=== PATIENT | male | born 1975 | race Caucasian/White ===

== ENCOUNTER 2019-01-03 22:04 | Emergency (ER) | payer SELFPAY ==
[~2019-01-03] VITALS: Ht 169.5 cm; Wt 93.2 kg
[2019-01-03] MEDS ORDERED: no home meds (22:46)
[2019-01-03] MEDS ORDERED: NS 1,000 ML IV ONE (23:45)
[2019-01-03] MEDS ORDERED: ISOVUE-370 76% 100ML VIAL (Q9967) As Ordered ONE (23:59)
--- NOTE | 2019-01-04 00:20 | REPVR ---
EXAM: CT Head Without Contrast EXAM DATE/TIME: 01/03/2019 11:56 PM CLINICAL HISTORY: 43 years old, male; Injury or trauma; Initial encounter; Blunt trauma (contusions or hematomas); Additional info: Tr TECHNIQUE: Imaging protocol: Computed tomography images of the head without contrast. Radiation optimization: All CT scans at this facility use at least one of these dose optimization techniques: automated exposure control; mA and/or kV adjustment per patient size (includes targeted exams where dose is matched to clinical indication); or iterative reconstruction. COMPARISON: No relevant prior studies available. FINDINGS: Brain: No intracranial hemorrhage or extra-axial fluid collection. No evidence of mass effect or midline shift. Luo-white matter differentiation is intact. Ventricles: No ventriculomegaly. Bones/joints: No acute osseus lesion or fracture. Sinuses: Unremarkable as visualized. Mastoid air cells: Unremarkable. Soft tissues: Unremarkable. IMPRESSION: No acute intracranial pathology. Electronically signed by: Jovani Earl On 01/04/2019 00:19:20 AM
--- NOTE | 2019-01-04 00:23 | REPVR ---
EXAM: CT Cervical Spine Without Contrast EXAM DATE/TIME: 01/03/2019 11:56 PM CLINICAL HISTORY: 43 years old, male; Injury or trauma; Initial encounter; Blunt trauma; Additional info: Tr TECHNIQUE: Imaging protocol: Computed tomography images of the cervical spine without contrast. Radiation optimization: All CT scans at this facility use at least one of these dose optimization techniques: automated exposure control; mA and/or kV adjustment per patient size (includes targeted exams where dose is matched to clinical indication); or iterative reconstruction. COMPARISON: No relevant prior studies available. FINDINGS: Vertebrae: Acute nondisplaced fracture involving the right lateral mass and transverse process of C2, with involvement of the right transverse foramina. Minimal extension of the fracture to the right lateral aspect of the dens. The dens is otherwise intact. Vertebral body heights are maintained. No locked or perched facets. Multilevel facet arthropathy. Atlanto-axial intervals are normal. Discs/Spinal canal/Neural foramina: Multilevel degenerative changes with intervertebral disc height loss and osteophyte formation. No significant spinal stenosis. Soft tissues: Unremarkable. Lungs: Lung apices are clear. IMPRESSION: Acute nondisplaced fracture involving the right lateral mass and transverse process of C2, with involvement of the right transverse foramina. Minimal extension of the fracture to the right lateral aspect of the dens. Recommend correlation with CTA neck to exclude vertebral artery injury. THIS REPORT CONTAINS FINDINGS THAT MAY BE CRITICAL TO PATIENT CARE. The findings were verbally communicated via telephone conference with PATRICIA YANCEY at 12:22 AM EDT on 01/04/2019. The findings were acknowledged and understood. Electronically signed by: Jovani Earl On 01/04/2019 00:23:18 AM
--- NOTE | 2019-01-04 00:25 | REPVR ---
EXAM: CT Abdomen and Pelvis With Contrast EXAM DATE/TIME: 01/03/2019 11:56 PM CLINICAL HISTORY: 43 years old, male; Injury or trauma; Initial encounter; Blunt; Generalized; Additional info: Tr TECHNIQUE: Imaging protocol: Computed tomography images of the abdomen and pelvis with intravenous contrast. Radiation optimization: All CT scans at this facility use at least one of these dose optimization techniques: automated exposure control; mA and/or kV adjustment per patient size (includes targeted exams where dose is matched to clinical indication); or iterative reconstruction. Contrast material: ISOVUE 370; Contrast volume: 100 ml; Contrast route: IV; COMPARISON: No relevant prior studies available. FINDINGS: Lungs: Mild bibasilar dependent atelectasis of the lung bases. Liver: Unremarkable. Gallbladder and bile ducts: Unremarkable. No ductal dilation. Pancreas: Unremarkable. No ductal dilation. Spleen: Unremarkable. Adrenals: Unremarkable. Kidneys and ureters: 1.7 cm fluid density cyst in the right kidney. Left kidney is unremarkable. No hydronephrosis or stones. Stomach and bowel: Stomach is unremarkable. No small bowel obstruction. Large bowel is unremarkable. Appendix: No evidence of appendicitis. Intraperitoneal space: No pneumoperitoneum. No significant fluid collection. Vasculature: Unremarkable. Lymph nodes: No enlarged lymph nodes. Bladder: Unremarkable. Reproductive: Unremarkable as visualized. Bones/joints: Multilevel mild degenerative changes of the visualized spine. No acute osseous lesion or fracture. Soft tissues: Unremarkable. IMPRESSION: 1. No acute intra-abdominal pathology. 2. Other chronic findings, as above. Electronically signed by: Jovani Earl On 01/04/2019 00:25:21 AM
--- NOTE | 2019-01-04 00:27 | REPVR ---
EXAM: CT Chest With Contrast EXAM DATE/TIME: 01/03/2019 11:56 PM CLINICAL HISTORY: 43 years old, male; Injury or trauma; Initial encounter; Additional info: Tr TECHNIQUE: Imaging protocol: Computed tomography images of the chest with intravenous contrast. Radiation optimization: All CT scans at this facility use at least one of these dose optimization techniques: automated exposure control; mA and/or kV adjustment per patient size (includes targeted exams where dose is matched to clinical indication); or iterative reconstruction. Contrast material: ISOVUE 370; Contrast volume: 100 ml; Contrast route: IV; COMPARISON: No relevant prior studies available. FINDINGS: Lungs: No focal areas of consolidation. No masses. Pleural space: No pleural effusion or pneumothorax. Heart: Unremarkable. No pericardial effusion. Aorta: Unremarkable. Lymph nodes: No enlarged lymph nodes. Bones/joints: No acute osseus lesion or fracture. Soft tissues: Unremarkable. IMPRESSION: No acute findings in the thorax. Electronically signed by: Jovani Earl On 01/04/2019 00:26:55 AM
[2019-01-04 00:29] LABS: BASO % 0.3 % (0.0-1.0); EOS % 0.1 % (0.0-3.0); HEMATOCRIT 43.3 % (42.0-52.0); HEMOGLOBIN 15.2 g/dl (13.5-17.5); LYMPH # 0.8 10^3/uL (1.5-4.5); LYMPH % 5.4 % (24.0-44.0); MEAN CORPUSCULAR HEMOGLOBIN 30.8 pg (27.0-33.0); MEAN CORPUSCULAR HGB CONC 35.1 g/dl (32.0-36.5); MEAN CORPUSCULAR VOLUME 87.7 fl (80.0-96.0); MONO # 0.8 10^3/uL (0.0-0.8); MONO % 5.3 % (0.0-5.0); NEUTROPHILS # 13.3 10^3/uL (1.8-7.7); NEUTROPHILS % 88.4 % (36.0-66.0); PLATELET COUNT, AUTOMATED 209 10^3/uL (150-450); RED BLOOD COUNT 4.94 10^6/uL (4.30-6.10)
[2019-01-04] MEDS ORDERED: PROPOFOL 200 MG/20 ML VIAL As Ordered ONE ×3 (00:33→00:54)
[2019-01-04 00:40] LABS: INR 1.02; PARTIAL THROMBOPLASTIN TIME 22.7 SECONDS (25.0-38.4); PROTHROMBIN TIME 13.1 SECONDS (11.8-14.0)
[2019-01-04 00:49] LABS: ALBUMIN 3.8 GM/DL (3.2-5.2); ALT/SGPT 42 U/L (12-78); BILIRUBIN,DIRECT < 0.1 MG/DL (0.0-0.2); BILIRUBIN,TOTAL 0.2 MG/DL (0.2-1.0); BLOOD UREA NITROGEN 15 MG/DL (7-18); CALCIUM LEVEL 8.7 MG/DL (8.5-10.1); CARBON DIOXIDE LEVEL 27 MEQ/L (21-32); CHLORIDE LEVEL 107 MEQ/L (98-107); CREATININE FOR GFR 1.14 MG/DL (0.70-1.30); ETHYL ALCOHOL (ETHANOL) 0.178 % (0.000-0.010); GLOMERULAR FILTRATION RATE > 60.0 (>60); GLUCOSE, FASTING 111 MG/DL (70-100); LIPASE 89 U/L (73-393); POTASSIUM SERUM 4.5 MEQ/L (3.5-5.1); SODIUM LEVEL 141 MEQ/L (136-145); TOTAL PROTEIN 7.2 GM/DL (6.4-8.2)
[2019-01-04] MEDS ORDERED: PROPOFOL 200 MG/20 ML VIAL IV ONE ×4 (01:00→01:09)
[2019-01-04 02:20] VITALS: BP 101/60
--- NOTE | 2019-01-05 07:52 | REP ---
Clinical: Trauma. Technique: AP and frog lateral views of the right femur. Findings: There is a mildly displaced intra-articular fracture involving the distal femoral metaphysis extending to the knee and involving the medial femoral condyle with overlying soft tissue swelling. Impression: Mildly displaced fracture involving the distal femoral metaphysis extending to the articular surface. Electronically Signed by Henrique Waldrop MD 01/04/2019 12:50 A
--- NOTE | 2019-01-05 07:53 | REP ---
Clinical: Trauma. Technique: Two oblique views of the right ankle. Findings: Transverse fracture through the distal fibular shaft is appreciated along with dislocation at the ankle joint and overlying soft tissue swelling. Subtle/small fractures involving the ankle cannot be excluded. Impression: 1. Transverse fracture through the distal fibular diaphysis. 2. Dislocation at the ankle joint. Electronically Signed by Henrique Waldrop MD 01/04/2019 12:52 A
--- NOTE | 2019-01-05 07:56 | REP ---
Clinical: Trauma. Technique: AP and lateral views of the right tibia / fibula. Findings: There is a transverse mildly displaced and angulated fracture involving the distal fibular diaphysis along with dislocation at the ankle joint and overlying soft tissue swelling. Lateral view suggest small fractures involving the posterior talus and possibly anterior margin of the talus. Subtle small fracture fragments involving the proximal tibia along the anterior and lateral tibial plateau are noted as well as comminuted fracture of the visualized distal femur. Impression: Multiple fractures with dislocation and swelling as noted above. Electronically Signed by Henrique Waldrop MD 01/04/2019 12:57 A
--- NOTE | 2019-01-05 08:54 | REP ---
Clinical: Status post reduction. Technique: AP and lateral views of the right ankle. Findings: Displaced distal fibular diaphysis fracture and ankle dislocation again noted. Impression: Multiple fracture dislocations. Electronically Signed by Henrique Waldrop MD 01/04/2019 02:56 A
== END 2019-01-04 02:27 | disposition short-term general hospital (02) ==
LOC: M ED 22:04
DX: S12.100A Unspecified displaced fracture of second cervical vertebra, initial encounter for closed fracture (principal); S72.401A Unspecified fracture of lower end of right femur, initial encounter for closed fracture; S92.101A Unspecified fracture of right talus, initial encounter for closed fracture; S82.301A Unspecified fracture of lower end of right tibia, initial encounter for closed fracture; V86.55XA Driver of 3- or 4- wheeled all-terrain vehicle (ATV) injured in nontraffic accident, initial encounter; Y92.89 Other specified places as the place of occurrence of the external cause; F10.229 Alcohol dependence with intoxication, unspecified; Y90.0 Blood alcohol level of less than 20 mg/100 ml; Z88.5 Allergy status to narcotic agent
CPT/HCPCS: 27788; 36415; 70450; 71260; 72125; 73552; 73590; 73600; 74177; 80048; 80076; 83690; 85025; 85610; 85730; 99152; 99153; 99285; G0480; Q9967